=== PATIENT | female | born 1990 | race Asian ===

== ENCOUNTER 2017-04-25 04:15 | Inpatient (IN) | payer SELFPAY ==
[~2017-04-25] VITALS: Ht 165.1 cm; Wt 79.8 kg
[2017-04-25] MEDS ORDERED: LACTATED RINGERS 1,000 ML IV SCH (04:53)
[2017-04-25] MEDS ORDERED: NALBUPHINE HYDROCHLORIDE 10 MG/ML VIAL IVP PRN (04:55)
[2017-04-25] MEDS ORDERED: OXYTOCIN 20 UNITS/LR PREMIX 1,000 ML IV SCH (04:55)
[2017-04-25] MEDS ORDERED: PROMETHAZINE 25 MG/ML VIAL IVP PRN (04:55)
[2017-04-25] MEDS ORDERED: OXYTOCIN 10 UNITS/ML VIAL IM SCH (04:55)
[2017-04-25 05:19] LABS: APPEARANCE,URINE CLEAR (CLEAR); BILIRUBIN,URINE NEGATIVE (NEGATIVE); BLOOD, URINE 2+ (NEGATIVE); COLOR,URINE YELLOW (YELLOW); LEUKOCYTE ESTERASE ,URINE NEGATIVE (NEGATIVE); NITRITE, URINE NEGATIVE (NEGATIVE); PH,URINE 6.5 (5.0-9.0); PROTEIN,URINE NEGATIVE (NEGATIVE); UGLUCOSE NEGATIVE (NEGATIVE); UROBILINOGEN,URINE 0.2 EU/dL (0.2 - 1)
[2017-04-25 05:21] LABS: BASOPHILS # (AUTO) 0.1 K/uL (0.00-0.22); BASOPHILS % (AUTO) 0.7 % (0.0-2.0); EOSINOPHILS # (AUTO) 0.3 K/uL (0-0.4); EOSINOPHILS % (AUTO) 3.5 % (0.0-4.0); HEMATOCRIT 38.5 % (36-48); HEMOGLOBIN 12.8 g/dL (12.0-16.0); LYMPHOCYTES # (AUTO) 2.1 K/uL (2.5-16.5); LYMPHOCYTES % (AUTO) 22.1 % (20.5-51.1); MEAN CORPUSCULAR HEMOGLOBIN 30 pg (27-31); MEAN CORPUSCULAR HGB CONC 33 g/dL (33-37); MEAN CORPUSCULAR VOLUME 89 fL (80-94); MONOCYTES # (AUTO) 0.7 K/uL (0.8-1.0); MONOCYTES % (AUTO) 7.1 % (1.7-9.3); NEUTROPHILS # (AUTO) 6.4 K/uL (1.8-7.7); NEUTROPHILS % (AUTO) 66.6 % (42.2-75.2); PLATELET COUNT (AUTO) 266 K/uL (140-450); RED BLOOD CELL COUNT(AUTO) 4.32 MIL/uL (4.20-5.40); RED CELL DISTRIBUTION WIDTH 12.9 % (11.6-13.7); WHITE BLOOD COUNT (AUTO) 9.6 K/uL (4.8-10.8)
[2017-04-25] MEDS ORDERED: METHYLERGONOVINE 0.2 MG/ML AMP IM SCH (05:25)
[2017-04-25] MEDS ORDERED: AMPICILLIN 2,000 MG in NACL 0.9% 100 ML IV SCH (05:25)
[2017-04-25] MEDS ORDERED: CARBOPROST 250 MCG/ML AMP IM PRN (05:25)
[2017-04-25 05:27] LABS: BACTERIA,URINE OCCASSIONAL /HPF (None Seen); CALCIUM OXALATE CRYSTALS,UR 0-10 /HPF (None Seen); RBC,URINE 20-50 /HPF (0-5); SQUAMOUS EPITHELIAL CELL,UR 4-10 (MOD) /LPF (0-3 (FEW)); WBC,URINE 0-5 (RARE) /HPF (0-5)
[2017-04-25 05:50] VITALS: BP 115/60
[2017-04-25 05:54] LABS: HIV RAPID SCREEN NON-REACTIVE (NON REACTIV)
--- NOTE | 2017-04-25 06:52 | NUR ---
PATIENT HAS BEEN SCREENED AND CATEGORIZED LOW NUTRITION RISK. PATIENT WILL BE SEEN WITHIN 7 DAYS OF ADMISSION. 05/01/16 PATTI RODRIGUEZ MS, RDN
[2017-04-25] MEDS ORDERED: AMPICILLIN 2,000 MG VIAL ONE (07:54)
[2017-04-25] MEDS ORDERED: OXYTOCIN 20 UNITS/LR PREMIX 1,000 ML IV ONE (09:35)
[2017-04-25 10:58] LABS: RAPID PLASMA REAGIN NON-REACTIVE (Non Reactiv)
[2017-04-25] MEDS ORDERED: AMPICILLIN 1,000 MG VIAL ONE ×3 (12:15→20:07)
[2017-04-25] MEDS: AMPICILLIN 1,000 MG VIAL IVP SCH ×3 (12:22→20:04)
[2017-04-25] MEDS ORDERED: BUPIVACAINE 0.125%/NS PREMIX 250 ML ONE (13:22)
[2017-04-25] MEDS ORDERED: PREN-546 PO (16:57)
[2017-04-25] MEDS ORDERED: OXYTOCIN 10 UNITS/ML VIAL ONE (21:41)
[2017-04-26] MEDS ORDERED: oxyCODONE/APAP 5/325 MG 1 TAB TAB PO PRN (00:05)
[2017-04-26] MEDS ORDERED: TEMAZEPAM 15 MG CAP PO PRN (00:05)
[2017-04-26] MEDS ORDERED: BENZOCAINE/MENTHOL 20%-0.5% 60 GM CAN TP PRN (00:05)
[2017-04-26] MEDS ORDERED: METHYLERGONOVINE 0.2 MG/ML AMP IM PRN (00:05)
[2017-04-26] MEDS ORDERED: HYDROcodone/APAP 5/325 MG 1 TAB TAB PO PRN (00:05)
[2017-04-26] MEDS ORDERED: MEASLES, MUMPS, AND RUBELLA 1 VIAL SQVAC PRN (00:05)
[2017-04-26] MEDS ORDERED: WITCH HAZEL 40 PAD PACKAGE TP PRN (00:05)
[2017-04-26] MEDS ORDERED: OXYTOCIN 10 UNITS/ML VIAL IM PRN (00:05)
[2017-04-26] MEDS: IBUPROFEN 800 MG TAB PO PRN ×2 (04:24→17:38)
[2017-04-26] MEDS ORDERED: BETHANECHOL 25 MG TAB PO SCH ×2 (06:30→09:00)
[2017-04-26 11:35] LABS: HEMATOCRIT 33.2 % (36-48); HEMOGLOBIN 11.1 g/dL (12.0-16.0)
[2017-04-26] MEDS ORDERED: DOCUSATE SOD/SENNA 50/8.6 MG 1 TAB PO SCH (21:00)
[2017-04-27] MEDS ORDERED: IBUP800T99 PO (07:52)
[2017-04-27] MEDS: IBUPROFEN 800 MG TAB PO PRN ×2 (08:25→08:28)
== END 2017-04-27 13:17 | disposition home or self-care (01) | DRG 775 ==
LOC: MFCC 04:15
PROVIDERS: ADMIT Obstetrics & Gynecology; ATTEND Obstetrics & Gynecology
PROC: 10D07Z6 Extraction of Products of Conception, Vacuum, Via Natural or Artificial Opening (ICD-10-PCS; principal; 2017-04-25)
PROC: 0W8NXZZ Division of Female Perineum, External Approach (ICD-10-PCS; 2017-04-25)
PROC: 00HU33Z Insertion of Infusion Device into Spinal Canal, Percutaneous Approach (ICD-10-PCS; 2017-04-25)
PROC: 3E0R3CZ (ICD-10-PCS; 2017-04-25)
PROC: 3E0234Z Introduction of Serum, Toxoid and Vaccine into Muscle, Percutaneous Approach (ICD-10-PCS; 2017-04-26)
DX: O69.1XX0 Labor and delivery complicated by cord around neck, with compression, not applicable or unspecified (principal); O89.4 Spinal and epidural anesthesia-induced headache during the puerperium; Z3A.38 38 weeks gestation of pregnancy; Z37.0 Single live birth; Z23 Encounter for immunization
CPT/HCPCS: 36415; 51702; 81001; 85018; 85025; 86592; 86886; 86900; 86901; 90715; C1758; J0290; J2590; J3490; J7120